=== PATIENT | female | born 1955 ===

== ENCOUNTER 2017-09-18 00:56 | Inpatient (IN) | payer MEDICARE ==
--- NOTE | 2017-09-18 02:26 | C.PDOC ---
History Of Present Illness Patient presents to the ER stating she hears voices telling her to hurt herself and others at time. Denies physical complaints at this time. Time Seen by Provider: 09/18/17 02:26 Chief Complaint (Nursing): Psychiatric Evaluation History Per: Patient History/Exam Limitations: no limitations Onset/Duration Of Symptoms: Days Current Symptoms Are (Timing): Still Present Suicide/Self Injury Attempted (Context): None Modifying Factor(s): None Severity: None Pain Scale Rating Of: 0 Associated Symptoms: Other (Hearing voices) Involuntary Hold By: None Recent travel outside of the [place]: No Past Medical History Reviewed: Historical Data, Nursing Documentation, Vital Signs Vital Signs: Last Vital Signs Temp 98.6 F 09/18/17 06:41 Pulse 59 L 09/18/17 06:41 Resp 16 09/18/17 06:41 BP 131/79 09/18/17 06:41 Pulse Ox 100 09/18/17 06:41 - Medical History PMH: Anxiety, Depression Family History: States: No Known Family Hx - Social History Hx Alcohol Use: No Hx Substance Use: No - Immunization History Hx Tetanus Toxoid Vaccination: No Hx Influenza Vaccination: No Hx Pneumococcal Vaccination: No Review Of Systems Constitutional: Negative for: Fever, Chills Gastrointestinal: Negative for: Nausea, Vomiting, Diarrhea Psych: Positive for: Other (Hearing voices) Physical Exam - Physical Exam Appears: Non-toxic Skin: Warm, Dry Head: Normacephalic Oral Mucosa: Moist Chest: Symmetrical, No Tenderness Cardiovascular: Rhythm Regular Respiratory: No Rales, No Rhonchi, No Wheezing Gastrointestinal/Abdominal: Soft, No Tenderness Neurological/Psych: Oriented x3 ED Course And Treatment - Laboratory Results Result Diagrams: 09/18/17 04:41 09/18/17 05:25 ECG: Interpreted By Me, Viewed By Me ECG Rhythm: Sinus Rhythm (57), Nonspecific Changes O2 Sat by Pulse Oximetry: 100 (room air) Pulse Ox Interpretation: Normal - Radiology CXR: Interpreted by Me, Viewed By Me CXR Interpretation: No: Infiltrates, Fracture, Pnemothorax Progress Note: EKG, blood work, urinalysis, and CXR ordered. Crisis notified. Disposition Discussed With : Counseled Patient/Family Regarding: Studies Performed, Diagnosis - Disposition Disposition Time: 02:26 Condition: FAIR Forms: [facility] ([place]) - Clinical Impression Clinical Impression: Depression, UTI (urinary tract infection) - Scribe Statement The provider has reviewed the documentation as recorded by the Scribe Khoa Tam All medical record entries made by the Scribe were at my direction and personally dictated by me. I have reviewed the chart and agree that the record accurately reflects my personal performance of the history, physical exam, medical decision making, and the department course for this patient. I have also personally directed, reviewed, and agree with the discharge instructions and disposition. Physician Patient Turnover Patient Signed Over To: Lakisha Naranjo Handoff Comments: pending crisis eval
[2017-09-18 04:46] LABS: BASO % 0.6 % (0.0-2.0); EOS # 0.3 K/uL (0.0-0.7); EOS % 3.9 % (0.0-4.0); HEMOGLOBIN 14.9 g/dL (11.0-16.0); LYMPH # 3.1 K/uL (1.0-4.3); LYMPH % 39.1 % (20.0-40.0); MEAN CELL VOLUME 88.9 fL (81.0-99.0); MEAN CORPUSCULAR HEMOGLOBIN 30.5 pg (27.0-31.0); MEAN CORPUSCULAR HGB CONC 34.3 g/dL (33.0-37.0); MEAN PLATELET VOLUME 9.3 fL (7.2-11.7); MONO # 0.4 K/uL (0.0-0.8); MONO % 5.3 % (0.0-10.0); NEUT % 51.1 % (50.0-75.0); NRBC % 0.1 % (0.0-2.0); RBC 4.9 Mil/uL (3.80-5.20); RED CELL DISTRIBUTION WIDTH 13.5 % (11.5-14.5); WHITE BLOOD COUNT 7.8 K/uL (4.8-10.8)
[2017-09-18 05:44] LABS: ALBUMIN 4.6 g/dL (3.5-5.0); ALT/SGPT 28 U/L (9-52); AST/SGOT 24 U/L (14-36); BLOOD UREA NITROGEN 21 mg/dL (7-17); CALCIUM 9.4 mg/dl (8.6-10.4); GFR AFRICAN-AMERICAN > 60; GFR NON-AFRICAN AMERICAN > 60
[2017-09-18 06:45] LABS: SQUAMOUS EPITHIAL 1 /hpf (0-5); URINE BILIRUBIN NEGATIVE (NEGATIVE); URINE BLOOD NEGATIVE (NEGATIVE); URINE CLARITY Hazy (Clear); URINE COLOR Yellow (YELLOW); URINE GLUCOSE (UA) NORMAL (Normal); URINE LEUKOCYTE ESTERASE 3+ Leu/uL (Negative); URINE NITRATE NEGATIVE (NEGATIVE); URINE PROTEIN NEGATIVE (NEGATIVE)
[2017-09-18 07:00] LABS: BARBITURATES, UR NEGATIVE (NEGATIVE); BENZODIAZEPINES, UR NEGATIVE (NEGATIVE); OPIATES, UR NEGATIVE (NEGATIVE); PHENCYCLIDINE, UR NEGATIVE (NEGATIVE)
--- NOTE | 2017-09-18 08:14 | RAD ---
PROCEDURE: CHEST RADIOGRAPH, 1 VIEW HISTORY: Detox/Psy COMPARISON: None available. FINDINGS: Note that the study is slightly limited due to partial obscuration of the right lung apex by overlying facial soft tissue and mandible artifact. LUNGS: Suspect minor left basilar atelectasis. PLEURA: No pneumothorax or pleural fluid seen. CARDIOVASCULAR: Normal. OSSEOUS STRUCTURES: No significant abnormalities. VISUALIZED UPPER ABDOMEN: Normal. OTHER FINDINGS: None. IMPRESSION: Minor left basilar atelectasis.
--- NOTE | 2017-09-18 08:49 | PCM.BM ---
Treatment Plan Problems - Problems identified on initial assessmt Depression Date Initiated: 09/18/17 Time Initiated: 08:43 Assessment reference: NA Status: Active Anxiety Date Initiated: 09/18/17 Time Initiated: :43 Assessment reference: NA Status: Active Treatment assets and liabiliti Patient Assests: adapts well, cooperative, ADL independent, physically healthy, negotiates basic needs, cognitively intact Patient Liabilities: live alone (Lives with mother), substance abuse (None), medical problems (None)
--- NOTE | 2017-09-18 09:28 | PCM.PSYCH ---
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 As per the ED notes, patient reported, "I had a panic attack about 2 days ago, and I was suffering from depression and anxiety;" I felt like I couldn't control myself;" I was flying or something;" My body, something lifted me up in the air;" In addition to the above symptoms, Pt also reported experiencing both auditory and auditory command hallucinations to kill herself over the past several days; Pt described the above "voices" as follows: "He ("demonic") wants to kill everyone in the world with a lot of money". The voice makes her anxious. When she gets anxious, she fights with her mom. Patient denies visual hallucinations. She says she is sometimes worried the radio is projecting her thoughts. Pt has tardive dyskinesia of the tongue. Patient is unkempt, disheveled and disorganized. She says that during her panic attacks, she feels very nervous. She also reports racing thoughts, poor concentration and poor sleep. She also reports depressed mood and at times feelings of hopelessness and helplessness. Patient sees Dr. Gonzalez in [place] once per month and has been compliant with her medication. She used to see a therapist in [place] at a clinic, but stopped. She has been diagnosed before with schizophrenia. She has been on risperdal, haldol and olanzapine in the past, but doesn't know why they were stopped. Olanzapine "made me pee blood." Without medication, she doesn't sleep. She denies any substance abuse. Psych hx: psych hospitalization in 1992 for panic attacks. Family psych: mom- depression, anxiety PMHx: none Past Psychiatric History - Past Psychiatric History Previous Treatment History: Inpatient Pertinent Medical Hx (Current Medical&Sleep Prob, Allergies): Allergies Allergy/AdvReac Type Severity Reaction Status Date / Time No Known Allergies Allergy Unverified 09/18/17 01:07 Benztropine [Benztropine Mesylate] 2 mg PO DAILY 09/18/17 Escitalopram [Lexapro] 30 mg PO DAILY 09/18/17 Review of Systems - Review of Systems All systems: reviewed and no additional remarkable complaints except - Psychiatric Psychiatric: Abnormal Sleep Pattern, Anxiety, Auditory Hallucinations, Panic Attacks, Paranoia, Suicidal Ideation. absent: Homicidal Ideation, Visual Hallucinations Mental Status Examination - Personal Presentation Personal Presentation: Looks stated age - Affect Affect: Constricted, Flat, Depressed - Motor Activity Motor Activity: Psychomotor Agitation - Reliability in Providing Information Reliability in Providing Information: Poor, due to alteration in thoughts, Poor , due to altered mood - Speech Speech: Disorganized - Mood Mood: Depressed, Anxious - Formal Thought Process Formal Thought Process: Hallucinations, Delusions, Paranoia - Hallucinations/Delusions Hallucinations: Auditory Delusions: Persecution - Obsessions/Compulsions Obsessions: No Compulsions: No - Cognitive Functions Orientation: Person, Place, Situation, Time Sensorium: Alert Attention/Concentration: Easily distracted Abstract Thinking: [place] Estimate of Intelligence: Below average Judgement: Imparied, as evidence by: Poor judgement, Imparied, as evidence by: Lack of insight into illness Memory: Recent intact, as evidence by: Ability to recall events of the day - Risk Risk: Suicidal, Diminished functioning - Strength & Assets Inventory Strength & Assets Inventory: Family support DSM 5 DX - DSM 5 DSM 5 Diagnosis: Schizophrenia paranoid type continuous - Recommended/Plan of Treatment Treatment Recommendations and Plan of Treatment: Schizophrenia paranoid type continuous -CBT -Psychoeducation -Supportive therapy, group therapy, individual therapy -Prolixin -Depakote -Trazodone UTI -Continue antibiotics - Smoking Cessation Smoking Cessation Initiated: No
--- NOTE | 2017-09-18 16:07 | PCM.BM ---
<Danette Varner - Last Filed: 09/18/17 16:06> Treatment Plan Problems - Problems identified on initial assessmt Depression Date Initiated: 09/18/17 Time Initiated: 09:00 Assessment reference: NA Status: Active Anxiety Date Initiated: 09/18/17 Time Initiated: 09:00 Assessment reference: NA Status: Active Treatment assets and liabiliti Patient Assests: adapts well, cooperative, ADL independent, physically healthy, negotiates basic needs, good interpersonal skills Patient Liabilities: live alone (Lives with mother), substance abuse (None) - Milieu Protocol Maintain good personal hygiene: daily Encourage regular showers, daily Remind patient to perform daily oral care, daily Assist patient to perform ADL's (Self) , other Assist patient to perform ADL's Maintain personal safety: every shift Educate patient to report safety concerns to staff, every shift Monitor environment for contraband/sharps Medication safety: Monitor for expected outcome, potential side effects: every shift, Assess barriers to learning: every shift, Assess readiness for medication education: every shift Milieu Narrative: Schizophrenia -CBT -Psychoeducation -Supportive therapy, group therapy, individual therapy Discharge/Continuing Care - Treatment Team Participation Patient/Family/SO Statement: Schizophrenia -CBT -Psychoeducation -Supportive therapy, group therapy, individual therapy <James Gee - Last Filed: 09/19/17 10:19> - Diagnosis (1) Schizophrenia Status: Acute Interventions: 09/19/17 10:20 * Assess/adjust medications daily and /or as needed * See patient on an individual basis 7x/week to assess status of hallucinations * Discuss risks, benefits, side effects and alternatives of medications * <Simona Best - Last Filed: 09/19/17 10:42> Family Contact Family involvement: Family/SO is involved Family contact: Patient declines to allow family contact at present - Goals for Treatment Patient goals for treatment: "I want to go home." Discharge/Continuing Care - Education Needs Education Needs: Patient Medication, Patient Coping Skills - Discharge Discharge Criteria: Tolerates medication w/o severe side effects, Reduction of target symptoms Discharge to:: Home - Treatment Team Participation Discussed with Family/SO: No Was Patient/Family/SO present at Treatment Team Meeting: Yes
--- NOTE | 2017-09-18 22:22 | CARD ---
APPROVED REPORT EKG Measurement Heart [id number] <Conclusion> Sinus bradycardia, APCs Otherwise normal ECG
[2017-09-19] MEDS: Divalproex 250 mg DR Tab PO SCH ×2 (09:53→17:19)
--- NOTE | 2017-09-19 10:20 | PCM.PYCHPN ---
Psychiatric Progress Note - Psychiatric Progress Note Patient seen today, length of contact: 15 min Patient Chief Complaint: "I decided I wanted to come here for anxiety and depression." Problems Identified/Issues Discussed: Patient seen and evaluated, chart reviewed and discussed with the nurse. Patient remained disorganized and internally preoccupied. She still reports of hearing voices. Patient still appears paranoid and delusional. She reports depressed mood and feelings of hopelessness and helplessness. Patient remained isolated, confined and withdrawn. Patient is compliant with medications and denies any side effects. Symptoms are improving but need more time to stabilize. Support and psychoeducation given. Medication Change: Yes Medical Record Reviewed: Yes Mental Status Examination - Cognitive Function Orientation: Person, Place, Situation, Time Memory: Intact Attention: WNL Concentration: Poor Association: Loose Fund of Knowledge: Poor - Mood Mood: Depressed, Anxious - Affect Affect: Constricted, Flat, Depressed - Speech Speech: Soft - Formal Thought Process Formal Thought Process: Hallucinations, Delusions, Paranoia - Suicidal Ideation Suicidal Ideation: No - Homicidal Ideation Homicidal Ideation: No Goal/Treatment Plan - Goal/Treatment Plan Need for Continued Stay: Discharge may exacerbated symptoms, Severe functional impairment Progress Toward Problem(s) and Goals/Treatment Plan: Schizophrenia paranoid type continuous -CBT -Psychoeducation -Supportive therapy, group therapy, individual therapy -Prolixin -Depakote -Trazodone UTI -Continue antibiotics - Smoking Cessation Smoking Cessation Initiated: No
[2017-09-20] MEDS: Divalproex 250 mg DR Tab PO SCH ×2 (09:38→17:01)
--- NOTE | 2017-09-20 21:53 | PCM.PYCHPN ---
Psychiatric Progress Note - Psychiatric Progress Note Patient seen today, length of contact: 15 min Patient Chief Complaint: "I am feeling little better. " Problems Identified/Issues Discussed: Patient seen and evaluated, chart reviewed and discussed with the nurse. As per the staff, pt appears more organized and less internally preoccupied. She still reports of hearing voices but less in intensity. Patient appears less paranoid and less delusional. She reports depressed mood but reports improvement in her feelings of hopelessness and helplessness. However, she remained isolated, confined and withdrawn. Patient is compliant with medications and denies any side effects. Symptoms are improving but need more time to stabilize. Support and psychoeducation given. Medication Change: Yes Medical Record Reviewed: Yes Mental Status Examination - Cognitive Function Orientation: Person, Place, Situation, Time Memory: Intact Attention: WNL Concentration: Poor Association: Loose Fund of Knowledge: Poor - Mood Mood: Depressed, Anxious - Affect Affect: Constricted, Flat, Depressed - Speech Speech: Soft - Formal Thought Process Formal Thought Process: Hallucinations, Delusions, Paranoia - Suicidal Ideation Suicidal Ideation: No - Homicidal Ideation Homicidal Ideation: No Goal/Treatment Plan - Goal/Treatment Plan Need for Continued Stay: Discharge may exacerbated symptoms, Severe functional impairment Progress Toward Problem(s) and Goals/Treatment Plan: Schizophrenia paranoid type continuous -CBT -Psychoeducation -Supportive therapy, group therapy, individual therapy -Prolixin -Depakote -Trazodone UTI -Continue antibiotics - Smoking Cessation Smoking Cessation Initiated: No
[2017-09-21] MEDS: Divalproex 250 mg DR Tab PO SCH ×2 (09:54→17:33)
[2017-09-21] MEDS ORDERED: Pneumococcal 23-Valent Vaccine IM ONE (10:00)
[2017-09-21] MEDS ORDERED: Influenza Vaccine 60 mcg/0.5 mL SYR (4YR UP) IM ONE (10:00)
--- NOTE | 2017-09-21 10:24 | PCM.PYCHPN ---
Psychiatric Progress Note - Psychiatric Progress Note Patient seen today, length of contact: 15 min Patient Chief Complaint: "I am feeling little better." Problems Identified/Issues Discussed: Patient seen and evaluated, chart reviewed and discussed with the nurse. Today patient appears less paranoid and less delusional. She reports depressed mood but reports improvement in her feelings of hopelessness and helplessness. However, she remained isolated, confined and withdrawn. As per the staff, pt appears more organized and less internally preoccupied. She still reports of hearing voices but less in intensity. Patient is compliant with medications and denies any side effects. Symptoms are improving but need more time to stabilize. Support and psychoeducation given. Medication Change: No Medical Record Reviewed: Yes Mental Status Examination - Cognitive Function Orientation: Person, Place, Situation, Time Memory: Intact Attention: WNL Concentration: Poor Association: Loose Fund of Knowledge: WNL - Mood Mood: Depressed, Anxious - Affect Affect: Constricted, Flat, Depressed - Speech Speech: Soft - Formal Thought Process Formal Thought Process: Hallucinations, Delusions, Paranoia - Suicidal Ideation Suicidal Ideation: No - Homicidal Ideation Homicidal Ideation: No Goal/Treatment Plan - Goal/Treatment Plan Need for Continued Stay: Discharge may exacerbated symptoms, Severe functional impairment Progress Toward Problem(s) and Goals/Treatment Plan: Schizophrenia paranoid type continuous -CBT -Psychoeducation -Supportive therapy, group therapy, individual therapy -Prolixin -Depakote -Trazodone UTI -Continue antibiotics - Smoking Cessation Smoking Cessation Initiated: No
[2017-09-22] MEDS: Divalproex 250 mg DR Tab PO SCH ×2 (09:34→17:54)
--- NOTE | 2017-09-22 17:56 | PCM.PYCHPN ---
Psychiatric Progress Note - Psychiatric Progress Note Patient seen today, length of contact: 15 min Patient Chief Complaint: Patient was seen. Chart was reviewed important content noted. Nurse input received. Patient needs time for stabilization. Pt reported her depression is getting better. She has no new complaints. No events overnight. Patient slept well and is eating well. Denies suicidal or homicidal ideations. Patient does not report hallucinations. No delusions elicited. No paranoia elicited. Patient has remained in good clinical and behavioral control. Symptoms are improving, but needs more time to stabilize. Patient is finding medications beneficial and would like to continue with treatment plan. Patient denied side effects of medication. Patient appreciated that treatment team is trying to help. Medication Change: No Medical Record Reviewed: Yes Mental Status Examination - Cognitive Function Orientation: Person, Place, Situation, Time Memory: Intact Attention: WNL Concentration: Poor Association: WNL Fund of Knowledge: WNL Decription of patient's judgement and insights: fair/fair, Calm and cooperative - Mood Mood: Depressed, Anxious - Affect Affect: Constricted, Flat, Depressed - Speech Speech: Soft - Formal Thought Process Formal Thought Process: Hallucinations, Delusions, Paranoia Psychotic Thoughts and Behaviors: denied - Suicidal Ideation Suicidal Ideation: No - Homicidal Ideation Homicidal Ideation: No Goal/Treatment Plan - Goal/Treatment Plan Need for Continued Stay: Discharge may exacerbated symptoms, Severe functional impairment Progress Toward Problem(s) and Goals/Treatment Plan: Continue current treatment as per primary team. Psychoeducation provided regarding diagnosis, treatment, meds benefits, side effects,, risk and alternative choices. Pt verbalized understanding and agree with the treatment plan.
[2017-09-23 05:42] VITALS: O2SAT 99
[2017-09-23] MEDS: Divalproex 250 mg DR Tab PO SCH ×2 (09:14→18:05)
--- NOTE | 2017-09-23 16:23 | PCM.PYCHPN ---
Psychiatric Progress Note - Psychiatric Progress Note Patient seen today, length of contact: 15 min Patient Chief Complaint: I'm feeling fine" Problems Identified/Issues Discussed: Patient was seen. Chart was reviewed important content noted. Nurse input received. Patient needs time for stabilization. No events overnight. Pt reported her depression is getting better. She has no new complaints. Patient slept well and is eating well. Patient is finding medications beneficial and would like to continue with treatment plan. Patient denied side effects of medication. Denies suicidal or homicidal ideations. Patient does not report hallucinations. No delusions elicited. No paranoia elicited. Patient has remained in good clinical and behavioral control. Symptoms are improving, but needs more time to stabilize. Medication Change: No Medical Record Reviewed: Yes Mental Status Examination - Cognitive Function Orientation: Person, Place, Situation, Time Memory: Intact Attention: WNL Concentration: Poor Association: WNL Fund of Knowledge: WNL Decription of patient's judgement and insights: fair/fair, Calm and cooperative - Mood Mood: Depressed, Anxious - Affect Affect: Constricted, Flat, Depressed - Speech Speech: Soft - Formal Thought Process Formal Thought Process: Hallucinations, Delusions, Paranoia Psychotic Thoughts and Behaviors: denied perceptual disturbances - Suicidal Ideation Suicidal Ideation: No Plan: denied - Homicidal Ideation Homicidal Ideation: No Plan: denied Goal/Treatment Plan - Goal/Treatment Plan Need for Continued Stay: Discharge may exacerbated symptoms, Severe functional impairment Progress Toward Problem(s) and Goals/Treatment Plan: Continue current treatment as per primary team. Psychoeducation provided regarding diagnosis, treatment, meds benefits, side effects,, risk and alternative choices. Pt verbalized understanding and agree with the treatment plan. Therapy in [facility]. Recommend to attend groups and individual therapy Estimated Date of D/C: 09/26/17
[2017-09-24] MEDS: Divalproex 250 mg DR Tab PO SCH ×2 (09:57→17:41)
--- NOTE | 2017-09-24 10:14 | PCM.PYCHPN ---
Psychiatric Progress Note - Psychiatric Progress Note Patient seen today, length of contact: 15 min Patient Chief Complaint: "I am feeling better." Problems Identified/Issues Discussed: Patient seen and evaluated, chart reviewed and discussed with the nurse. Today patient reports improvement in her depressed mood but reports improvement in her feelings of hopelessness and helplessness. However, she remained isolated, confined and withdrawn. As per the staff, pt appears more organized and denies any voices. Patient is compliant with medications and denies any side effects. Symptoms are improving but need more time to stabilize. Support and psychoeducation given. Medication Change: No Medical Record Reviewed: Yes Mental Status Examination - Cognitive Function Orientation: Person, Place, Situation, Time Memory: Intact Attention: WNL Concentration: WNL Association: WNL Fund of Knowledge: WNL - Mood Mood: Depressed, Anxious - Affect Affect: Constricted, Flat, Depressed - Speech Speech: Soft - Formal Thought Process Formal Thought Process: No Impairment - Suicidal Ideation Suicidal Ideation: No - Homicidal Ideation Homicidal Ideation: No Goal/Treatment Plan - Goal/Treatment Plan Need for Continued Stay: Discharge may exacerbated symptoms, Severe functional impairment Progress Toward Problem(s) and Goals/Treatment Plan: Schizophrenia paranoid type continuous -CBT -Psychoeducation -Supportive therapy, group therapy, individual therapy -Prolixin -Depakote -Trazodone UTI -Continue antibiotics Estimated Date of D/C: 09/26/17 - Smoking Cessation Smoking Cessation Initiated: No
[2017-09-25 05:35] VITALS: BP 97/56; PULSE 77; RESP 16; TEMP 97.7
[2017-09-25] MEDS: Divalproex 250 mg DR Tab PO SCH (10:02)
--- NOTE | 2017-09-25 10:25 | PCM.PYCHDC ---
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 As per the ED notes, patient reported, "I had a panic attack about 2 days ago, and I was suffering from depression and anxiety;" I felt like I couldn't control myself;" I was flying or something;" My body, something lifted me up in the air;" In addition to the above symptoms, Pt also reported experiencing both auditory and auditory command hallucinations to kill herself over the past several days; Pt described the above "voices" as follows: "He ("demonic") wants to kill everyone in the world with a lot of money". The voice makes her anxious. When she gets anxious, she fights with her mom. Patient denies visual hallucinations. She says she is sometimes worried the radio is projecting her thoughts. Pt has tardive dyskinesia of the tongue. Patient is unkempt, disheveled and disorganized. She says that during her panic attacks, she feels very nervous. She also reports racing thoughts, poor concentration and poor sleep. She also reports depressed mood and at times feelings of hopelessness and helplessness. Patient sees Dr. Gonzalez in [place] once per month and has been compliant with her medication. She used to see a therapist in [place] at a clinic, but stopped. She has been diagnosed before with schizophrenia. She has been on risperdal, haldol and olanzapine in the past, but doesn't know why they were stopped. Olanzapine "made me pee blood." Without medication, she doesn't sleep. She denies any substance abuse. Consultations:: List each consultation separately and include: 1. Reason for request. 2. Findings. 3. Follow-up Summary of Hospital Course include:: 1. Description of specific treatment plan utilized for patients during their course of treatmen. 2. Summarize the time- course for resolution of acute symptoms and/or regressed behaviors. 3. Describe issues identified and worked on during hospitalization. 4. Describe medication utilized. 5. Describe medical problems identified and treated. 6. Reassessment of suicide risk Summary of Hospital Course: During the course of her stay, patient (pt) started progressively improving and no longer remained irritable, depressed, and suicidal. Her mood and anxiety were improved and she started attending groups and meetings and started socializing. Patient denied any feelings of hopelessness, helplessness, and worthlessness, denied any problem with the sleep or appetite, denied suicidal ideation or homicidal ideation. Pt denied any auditory or visual hallucinations. Some changes were made in her current medications and patient was discharged on following medications. She tolerated these medications very well and denied any side effects. Pt is to return to outpatient [facility]. - Diagnosis (1) Schizophrenia Status: Acute - Final Diagnosis (DSM 5) Condition upon Discharge: STABLE DSM 5: Schizophrenia paranoid type continuous Disposition: HOME/ ROUTINE Follow-up Treatment Plan: Education: Pt was educated and counseled about the risks and benefits of taking and not taking medications. Pt was educated and counseled about the risks of drinking and abusing drugs. Pt was educated and counseled to go to the ER or call 911 if pt develop suicidal ideation or homicidal ideation, worsening of symptoms or severe side effects of the meds. Prescriptions/Medication Reconciliation: Benztropine [Cogentin] 1 mg PO BID #60 tab Divalproex [Depakote DR] 250 mg PO BID #60 tcp fluPHENAZine [Prolixin] 5 mg PO BID #60 tab traZODone [Desyrel] 50 mg PO HS PRN #30 tab PRN Reason: Insomnia - Smoking Cessation Smoking Cessation Medication prescribed: No - Antipsychotic Medications Pt discharged on 2 or more routine antipsychotic medications: No
== END 2017-09-25 12:48 | disposition home or self-care (01) | DRG 885 ==
LOC: C.ER 00:56 → C.5E 08:10
PROVIDERS: ADMIT Psychiatry & Neurology Psychiatry; ATTEND Psychiatry & Neurology Psychiatry
PROC: GZHZZZZ Group Psychotherapy (ICD-10-PCS; principal; 2017-09-18)
PROC: GZ58ZZZ Individual Psychotherapy, Cognitive-Behavioral (ICD-10-PCS; 2017-09-18)
PROC: GZ56ZZZ Individual Psychotherapy, Supportive (ICD-10-PCS; 2017-09-18)
DX: F20.0 Paranoid schizophrenia (principal); F32.9 Major depressive disorder, single episode, unspecified; N39.0 Urinary tract infection, site not specified; F41.9 Anxiety disorder, unspecified